=== PATIENT | male | born 1935 | race Caucasian/White ===

== ENCOUNTER 2018-02-01 23:27 | Inpatient (IN) | payer MEDICARE, BC ==
[2018-02-01 23:52] LABS: Actual Bicarbonate (HCO3a) 21.4 mEq/L (22-28); Base Excess (BEa) 6.7 mEq/L (-2.0 to +3.0); CO2 Tension 51.9 mmHg (35.0-45.0); Hemoglobin (Hb) 16.8 g/dL (14.0-18.0); O2 Tension (PaO2) 116.7 mmHg (> 60.0); pH, Arterial 7.23 (7.35-7.45)
[2018-02-01 23:53] LABS: Analyzer IN Cardio ER; Calcium, Ionized 1.16 mmol/L (1.12-1.30); Carboxyhemoglobin (COHb) 0.4 gm% (0.0-3.0); Potassium - ABG Lab 4.24 mmol/L (3.70-5.30); Puncture Site LRA
[2018-02-01 23:54] LABS: ALV-art Gradient 522.425 (0-20)
[2018-02-02 00:46] LABS: Troponin I 0.314 ng/mL (< 0.028)
[2018-02-02] MEDS ORDERED: Ondansetron HCl/PF 4 MG/2 ML Vial IVP PRN (01:09)
[2018-02-02] MEDS ORDERED: Acetaminophen 325 MG TAB PO PRN (01:09)
[2018-02-02 03:27] LABS: #Lymphocytes 0.5 thou/uL (1.20-3.40); #Monocytes 0.2 thou/uL (0.11-0.59); #Neutrophils 6.6 thou/uL (1.40-6.50); %Eosinophils 0.2 % (0.0-10.0); %Lymphocytes 6.7 % (21.0-51.0); %Monocytes 3.1 % (0.0-10.0); Hemoglobin 16.4 g/dL (14.0-18.0); Mean Corpuscular HGB CONC 33.7 g/dL (32.0-36.0); Mean Corpuscular Hemoglobin 32.4 pg (27.0-31.0); Mean Corpuscular Volume 96.1 fL (78.0-98.0); Mean Platelet Volume 8.4 fL (7.4-10.4); Platelet Count 127 thou/uL (130-400); RBC Distribution Width 12.9 % (11.5-14.5); Red Blood Cell (RBC) Count 5.07 mill/uL (4.70-6.10); White Blood Cell (WBC) Count 7.4 thou/uL (4.8-10.8)
[2018-02-02 03:40] LABS: Anion Gap 15 mmol/L (10-20); BUN (Urea Nitrogen) 30 mg/dL (8.4-25.7); Calc. Creatinine Clearance 0 mL/min (70-130); Calcium 9.1 mg/dL (7.8-10.44); Carbon Dioxide 26 mmol/L (23-31); Chloride 106 mmol/L (98-107); Estimated GFR-MDRD 61; Glucose 103 mg/dL (83-110); Potassium 3.6 mmol/L (3.5-5.1); Sodium 143 mmol/L (136-145)
[2018-02-02] MEDS ORDERED: Enoxaparin Sodium 80 MG/0.8 ML SYRINGE SC SCH (05:15)
[2018-02-02] MEDS: Nitroglycerin 2% Ointment 1 INCH/1 GM Packet TOP SCH ×3 (05:52→21:07)
--- NOTE | 2018-02-02 06:20 | HP ---
DATE OF ADMISSION: 02/01/2018 PRIMARY CARE PHYSICIAN: Dr. Duffy. CODE STATUS: FULL CODE. TIME OF EVALUATION: 12:30. CHIEF COMPLAINT: Gradually worsening shortness of breath. HISTORY OF PRESENT ILLNESS: This is an 82-year-old male patient with past medical history of congestive heart failure, hypertension, coronary artery disease, GERD, BPH, came to the hospital after having severe gradually worsening shortness of breath that started around 5-6 p.m. No clear triggers, no alleviating factors. The patient has had a regular day today including going to the gym in the morning, doing some exercises. The symptoms got gradually rapidly worse, patient was found to be in acute respiratory failure and was placed on BiPAP and showed improvement and transferred here to our hospital. As now, it looks like patient had not been taking Lasix for the past week due to change in medications. REVIEW OF SYSTEMS: Constitutional: No fever or chills or generalized weakness. Respiratory: Patient has cough, no sputum production, shortness of breath. Cardiovascular: No chest pain, palpitation. Gastrointestinal: No nausea, vomiting, diarrhea, or abdominal pain. HOSE SEAMER: No dizziness, headache, or feeling lightheaded. Genitourinary: No burning on urination. Extremities: Bilateral leg swelling. All other systems were reviewed and negative except for the findings mentioned above. PAST MEDICAL HISTORY: As mentioned in the HPI. PAST SURGICAL HISTORY: Cardiac catheterization in 12/2003. PSYCHIATRIC HISTORY: No psych history. SOCIAL HISTORY: No alcohol use, no drug use. No smoking history. FAMILY HISTORY: Reviewed and noncontributory for current presentation. DRUG ALLERGIES: No known drug allergies. REPORTED MEDICATIONS: Finasteride, potassium chloride, Lasix. PHYSICAL EXAMINATION: VITAL SIGNS: On presentation, heart rate 118, respiratory rate was 16, oxygen saturation 93 on room air, blood pressure 141/90. GENERAL: The patient was maintained on bedside. Patient is alert, oriented, in distress on BiPAP. HEENT: Normal conjunctivae. Moist oral mucosa. Anicteric. NECK: Bilateral JVD. RESPIRATORY: Bilateral air entry reduced. Patient has bilateral rales, scattered wheezing. Symmetric expansion. CARDIOVASCULAR: Patient is tachycardic, regular rate. No murmurs, no gallop. Bilateral leg edema. ABDOMEN: Soft, normal bowel sounds. MUSCULOSKELETAL: Baseline range of motion and strength. No tenderness. SKIN: Warm and intact. No pallor, no rash, no redness. Peripheral pulses are present. Capillary refill seems to be intact. NEUROLOGIC: Baseline sensory. No evidence of any new focal weakness. Baseline speech. Cranial nerves seem to be intact. PSYCH: Patient is in good mood. No anxiety, oriented, optimal judgment. IMAGING: EKG was reviewed. The patient has LBBB with ventricular rate 101. AL 168, QRS 172, QT corrected 557. Chest x-ray was reviewed. The patient has cardiomegaly with congestive heart failure, interstitial edema. LABORATORY DATA: Reviewed. The patient has white count 7.4, hemoglobin 16, hematocrit 48, MCV 96, platelet count 137. ABG was done showed pH of 7.23 with pCO2 of 51, pO2 of 116 that was on BiPAP oxygen of 100. Chemistry: Sodium 143, potassium 3.6, chloride 106, carbon dioxide 26, anion gap 15, BUN 30 , creatinine 1.15, GFR 61, glucose 103, calcium 9.1, magnesium 2.5, and troponin 0.3. ASSESSMENT AND PLAN: The patient will be placed in the hospital with following medical problems: 1. Acute congestive heart failure exacerbation. Patient has acute respiratory failure with hypoxia, needing BiPAP with saturation of 20, increased level of breathing, bilateral rales. Patient receiving diuresis, reconcile home medications. Dr. Escobar has been called for ER, we will follow recommendations. 2. Non-ST elevation myocardial infarction likely non-ST elevation myocardial infarction type 2. His elevation in troponin during exacerbation, there is also left bundle branch block seen on the EKG that was new when compared with previous EKGs in records, Dr. Escobar has been called, we will follow recommendations. 3. History of gastroesophageal reflux disease. Reconcile home medications. 4. Controlled hypertension, reconciled home medications. Adjust treatment as needed. 5. Deep venous thrombosis prophylaxis. [facility]
[2018-02-02] MEDS: Furosemide 40 MG/4 ML VIAL SLOW IVP SCH ×2 (06:29→14:21)
--- NOTE | 2018-02-02 08:54 | PDOC.PN ---
- Subjective Encounter Start Date: 02/02/18 Encounter Start Time: 08:52 Mr. Lewis was seen today in follow-up of CHF exacerbation. He is currently on BiPAP. He says he is breathing better, and wants to remove the face mask. He denies having any chest pain. - Objective Resuscitation Status: Resuscitation Status FULL:Full Resuscitation MAR Reviewed: Yes Vital Signs & Weight: Vital Signs (12 hours) Temp Pulse Resp BP Pulse Ox 02/02/18 08:00 97 02/02/18 07:36 98.6 F 85 29 H 115/71 97 02/02/18 03:10 96 02/02/18 02:52 97.9 F 89 29 H 114/76 97 Weight Weight 155 lb 3 oz I&O: 02/01/18 02/02/18 02/03/18 06:59 06:59 06:59 Intake Total 14 Output Total 750 Balance -736 Result Diagrams: 02/02/18 03:17 02/02/18 03:17 Phys Exam - Physical Examination HEENT: PERRLA Respiratory: no wheezing + rales at both bases, and some rhonchi good breath sounds Cardiovascular: RRR, no significant murmur, no rub Gastrointestinal: soft, non-tender, no distention, positive bowel sounds Musculoskeletal: no edema, pulses present Dx/Plan (1) Acute on chronic systolic (congestive) heart failure Code(s): I50.23 - ACUTE ON CHRONIC SYSTOLIC (CONGESTIVE) HEART FAILURE Status : Acute (2) Acute respiratory failure with hypoxia Code(s): J96.01 - ACUTE RESPIRATORY FAILURE WITH HYPOXIA Status: Acute (3) NSTEMI (non-ST elevated myocardial infarction) Code(s): I21.4 - NON-ST ELEVATION (NSTEMI) MYOCARDIAL INFARCTION Status: Acute (4) Hypertension Code(s): I10 - ESSENTIAL (PRIMARY) HYPERTENSION Status: Acute - Plan * Acute hypoxic respiratory failure due to CHF exacerbation- continue BiPAP. * CHF exacerbation- not yet compensated- continue IV Lasix, and BiPAP * Continue Losartan * Await further recommendations from Dr. Grewal * NSTEMI- as above continue Carvediolol, and aspirin, and nitropaste * HTN- blood pressure is controlled *
[2018-02-02] MEDS ORDERED: Prevnar 13-Val Conj/PF 0.5 ML SYRINGE IM ONE (09:00)
[2018-02-02] MEDS ORDERED: Enoxaparin Sodium 40 MG/0.4 ML SYRINGE SC SCH (09:00)
[2018-02-02] MEDS: Losartan 25 MG TAB PO SCH (09:29)
[2018-02-02] MEDS: Aspirin 325 MG TAB PO SCH (09:29)
[2018-02-02] MEDS: Carvedilol 3.125 MG TAB PO SCH ×3 (09:29→20:33)
[2018-02-02] MEDS: Finasteride 5 MG TAB PO SCH (09:30)
[2018-02-02] MEDS: Atorvastatin Calcium 10 MG TAB PO SCH (09:30)
--- NOTE | 2018-02-02 10:13 | CON ---
DATE OF CONSULTATION: 02/02/2018 The following encompassed 30 minutes time, of that time, greater than 50% of the time was spent with the patient and/or on the patient's unit in the IM. HISTORY OF PRESENT ILLNESS: The patient is a pleasant 82-year-old male who came to the hospital in [facility] last night with increasing shortness of breath of several days' duration. His state s that he had cut his diuretic dose in half against doctor recommendations. The patient has been raeann chhaya on BiPAP for acute on chronic respiratory failure. He is now on IV Lasix. PAST MEDICAL HISTORY: 1. Congestive heart failure. 2. Hypertension. 3. Coronary artery disease. 4. Benign prostatic hypertrophy. 5. Gastroesophageal reflux. PAST SURGICAL HISTORY: Cardiac catheterization. PSYCHIATRIC HISTORY: None. SOCIAL HISTORY: Nonsmoker, does not consume alcohol, does not use illicit drugs. FAMILY MEDICAL HISTORY: Unremarkable. ALLERGIES: None. MEDICATIONS PRIOR TO ADMISSION: Carvedilol 3.125 mg b.i.d., aspirin 81 mg daily, furosemide 20 mg da rosita, finasteride 5 mg daily, losartan 50 mg daily, atorvastatin 10 mg daily. REVIEW OF SYSTEMS: Twelve point review of systems is otherwise negative. PHYSICAL EXAMINATION: VITAL SIGNS: Temperature 98.6, pulse 85, respiration is 29, saturation 97% on BiPAP, blood pressure 115/71. HEENT: Unremarkable. NECK: No adenopathy. He has 6 cm JVD. LUNGS: He has inspiratory crackles in both bases. CARDIAC: S1, S2 regular without audible murmur. ABDOMEN: Soft, nontender, nondistended. EXTREMITIES: No clubbing, cyanosis, or edema. NEUROLOGIC: Grossly intact throughout. LABORATORY DATA: Troponins 2.0. Sodium 143, potassium 3.6, chloride 106, CO2 26, BUN 30, creatinine 1.2, glucose 103. PH 7.23, pCO2 51, pO2 of 116, that was on BiPAP, white blood cell count 7.4, wendy tocrit 48.7, platelet count 127. BNP level was 1370. Chest x-ray shows cardiomegaly with diffuse bilateral infiltrates. ASSESSMENT: 1. Acute systolic congestive heart failure. 2. Acute hypoxic respiratory failure requiring mechanical ventilation with BiPAP. 3. Renal insufficiency. 4. Slightly elevated troponin. PLAN: 1. This patient needs to continue BiPAP until he has diuresed enough to tolerate a nasal cannula. 2. Continue diuresis. 3. Further input per Cardiology. 4. We will follow with you.
[2018-02-02] MEDS: Enoxaparin Sodium 80 MG/0.8 ML SYRINGE SC SCH (20:30)
[2018-02-03] MEDS: Furosemide 40 MG/4 ML VIAL SLOW IVP SCH ×2 (05:43→14:44)
[2018-02-03] MEDS: Nitroglycerin 2% Ointment 1 INCH/1 GM Packet TOP SCH ×3 (05:43→21:53)
[2018-02-03] MEDS: Carvedilol 3.125 MG TAB PO SCH ×2 (08:26→16:05)
[2018-02-03] MEDS: Losartan 25 MG TAB PO SCH ×2 (08:26→20:33)
[2018-02-03] MEDS: Aspirin 325 MG TAB PO SCH (08:26)
[2018-02-03] MEDS: Enoxaparin Sodium 80 MG/0.8 ML SYRINGE SC SCH (08:26)
[2018-02-03] MEDS: Atorvastatin Calcium 10 MG TAB PO SCH (08:26)
[2018-02-03] MEDS: Finasteride 5 MG TAB PO SCH (08:26)
--- NOTE | 2018-02-03 09:09 | PRG ---
DATE OF SERVICE: 02/03/2018 The patient is feeling better today. He is off the BiPAP. PHYSICAL EXAMINATION: VITAL SIGNS: Temperature 98.6, pulse 78, respirations 20, O2 sat 90% on 3.5 liters, blood pressure 1 10/57. HEENT: Unremarkable. NECK: No JVD. LUNGS: He has inspiratory crackles both bases. CARDIAC: S1 and S2 regular. ABDOMEN: Soft. EXTREMITIES: No edema. LABORATORY DATA: No new labs were obtained today. ASSESSMENT: 1. Congestive heart failure. 2. Status post acute hypoxic respiratory failure. PLAN: This patient can be transferred out to the telemetry floor. He is out of the glez in terms o f his pulmonary edema. He needs to continue diuresis. He needs his labs checked tomorrow morning.
--- NOTE | 2018-02-03 11:14 | PDOC.PN ---
- Subjective Encounter Start Date: 02/03/18 Encounter Start Time: 11:12 Mr. Lewis was seen today in follow-up of acute respiratory failure. He is breathing better, and is now off BiPAP. He is still requiring some supplemental oxygen. - Objective Resuscitation Status: Resuscitation Status FULL:Full Resuscitation MAR Reviewed: Yes Vital Signs & Weight: Vital Signs (12 hours) Temp Pulse Resp BP Pulse Ox 02/03/18 11:02 98.1 F 67 18 109/71 100 02/03/18 08:36 98 02/03/18 08:00 99 02/03/18 07:12 98.6 F 78 20 110/57 L 99 02/03/18 04:00 98.9 F 56 L 20 95/56 L 99 02/03/18 00:00 98.4 F 69 20 93/64 100 Weight Weight 157 lb I&O: 02/02/18 02/03/18 02/04/18 06:59 06:59 06:59 Intake Total 14 1274 Output Total 750 1300 Balance -736 -26 Result Diagrams: 02/02/18 03:17 02/02/18 03:17 Phys Exam - Physical Examination HEENT: PERRLA Respiratory: no wheezing, no rhonchi + rales bilaterally, breath sounds are equal Cardiovascular: RRR, no significant murmur, no rub no gallop Gastrointestinal: soft, non-tender, no distention, positive bowel sounds Musculoskeletal: edema present Dx/Plan (1) Acute on chronic systolic (congestive) heart failure Code(s): I50.23 - ACUTE ON CHRONIC SYSTOLIC (CONGESTIVE) HEART FAILURE Status : Acute (2) Acute respiratory failure with hypoxia Code(s): J96.01 - ACUTE RESPIRATORY FAILURE WITH HYPOXIA Status: Acute (3) NSTEMI (non-ST elevated myocardial infarction) Code(s): I21.4 - NON-ST ELEVATION (NSTEMI) MYOCARDIAL INFARCTION Status: Acute (4) Hypertension Code(s): I10 - ESSENTIAL (PRIMARY) HYPERTENSION Status: Acute - Plan * Acute systolic heart failure- improved- continue to diurese with IV Lasix * Continue Losartan and Carvediolol * NSTEMI- He has been evaluated by Cardiology, and an Echo has been ordered, continue aspirin and statin * HTN- blood pressure is a bit low, but so far he is not symptomatic from this- will monitor
[2018-02-03] MEDS ORDERED: Diltiazem 125 MG in Sodium Chloride 0.9% 100 ML IVPB SCH (13:00)
--- NOTE | 2018-02-03 16:04 | CON ---
DATE OF CONSULTATION: 02/03/2018 HISTORY OF PRESENT ILLNESS: The patient is an 82-year-old gentleman who presented with increasing dyspnea. The patient has a history of a cardiomyopathy. In 2003. The patient underwent a cardiac catheterization. He was found to have mild coronary artery disease with a 30% LAD lesion. His ejection fraction was 35%-40%. The patient has subsequently been on medical therapy. The patient has done well on medical therapy. He at the time was tried on Entresto, but this medication was subsequently discontinued due to the cost. The patient was in his usual state of health when he presented with acute onset of increasing dyspnea. The patient denied having any chest discomfort or palpitations. He reported having severe coughing. He denied having any fever. PAST MEDICAL HISTORY: 1. Coronary artery disease. 2. Cardiomyopathy. 3. Hypertension. 4. He had a history of gastric ulcer. PAST SURGICAL HISTORY: None. SOCIAL HISTORY: Nonsmoker. No excessive use of alcohol. MEDICATIONS: Carvedilol 3.125 b.i.d., aspirin 81 daily, Lasix 20 daily, finasteride 5 daily, losartan 50 daily, and Lipitor 10 at bedtime. ALLERGIES: No known drug allergies. FAMILY HISTORY: Positive family history of coronary artery disease. REVIEW OF SYSTEMS: Ten-point system otherwise unremarkable. No history of easy bruising, bright blood per rectum. Ten-point system otherwise unremarkable. PHYSICAL EXAMINATION: GENERAL: This is a well-developed gentleman in no acute distress. VITAL SIGNS: Blood pressure 109/71. NECK: Showed no jugular venous distention. LUNGS: Have crackles throughout both lung preston. HEART: Regular rate and rhythm with a normal S1, S2, no murmurs. ABDOMEN: Distended. EXTREMITIES: Showed trace edema. SKIN: Warm and dry. NEUROLOGIC: Nonfocal. VASCULAR: Radial pulses 2+. LABORATORY DATA: Sodium 143, potassium 3.6, chloride 106, bicarbonate 26, BUN 30, creatinine 1.15. Troponin was 2.0. His white blood cell count 7.4, hemoglobin 16.4, hematocrit 48.7, platelets 127. EKG revealed normal sinus rhythm with a left bundle branch block. IMPRESSION: 1. Congestive heart failure. 2. Non-Q-wave myocardial infarction. 3. Nonischemic cardiomyopathy. 4. Hypertension. 5. History of mild coronary artery disease. 6. History of gastric ulcer. This gentleman presents with congestive heart failure. He had a mild elevation in troponin, which may be secondary to demand ischemia or small non-Q-wave myocardial infarction. From a cardiac standpoint, I would increase the dose of his losartan. The patient will be treated with IV Lasix. We will add spironolactone. We will check an echocardiogram. Further recommendations will follow. [facility]TDD
[2018-02-04] MEDS: Furosemide 40 MG/4 ML VIAL SLOW IVP SCH (06:01)
[2018-02-04] MEDS: Nitroglycerin 2% Ointment 1 INCH/1 GM Packet TOP SCH (06:01)
[2018-02-04 06:41] LABS: Anion Gap 12 mmol/L (10-20); BUN (Urea Nitrogen) 35 mg/dL (8.4-25.7); Calc. Creatinine Clearance 60 mL/min (70-130); Carbon Dioxide 30 mmol/L (23-31); Chloride 104 mmol/L (98-107); Estimated GFR-MDRD 75; Glucose 102 mg/dL (83-110); Sodium 143 mmol/L (136-145)
[2018-02-04] MEDS ORDERED: Spironolactone 25 MG TAB PO SCH (08:25)
[2018-02-04] MEDS ORDERED: Furosemide 40 MG/4 ML VIAL SLOW IVP SCH (09:00)
[2018-02-04] MEDS: Atorvastatin Calcium 10 MG TAB PO SCH (09:16)
[2018-02-04] MEDS: Spironolactone 25 MG TAB PO SCH (09:16)
[2018-02-04] MEDS: Enoxaparin Sodium 40 MG/0.4 ML SYRINGE SC SCH (09:16)
[2018-02-04] MEDS: Aspirin 81 mg Enteric Coated Tablet PO SCH (09:16)
[2018-02-04] MEDS: Carvedilol 3.125 MG TAB PO SCH ×2 (09:16→18:23)
[2018-02-04] MEDS: Finasteride 5 MG TAB PO SCH (09:16)
[2018-02-04] MEDS: Losartan 25 MG TAB PO SCH ×2 (09:16→20:01)
--- NOTE | 2018-02-04 09:25 | PDOC.PN ---
- Subjective Encounter Start Date: 02/04/18 Encounter Start Time: 08:45 Subjective: no chest pain or palp, mild sob -: is ambulating in hallway -: has not bad BM since admission - Objective Resuscitation Status: Resuscitation Status FULL:Full Resuscitation MAR Reviewed: Yes Vital Signs & Weight: Vital Signs (12 hours) Temp Pulse Resp BP Pulse Ox 02/04/18 08:00 97.7 F 52 L 16 118/63 92 L 02/04/18 03:56 98.2 F 64 20 104/68 93 L 02/04/18 02:11 92 L 02/04/18 00:00 98.0 F 69 16 100/58 L 92 L Weight Weight 149 lb 8 oz I&O: 02/03/18 02/04/18 02/05/18 06:59 06:59 06:59 Intake Total 1274 300 Output Total 1300 650 450 Balance -26 -350 -450 Result Diagrams: 02/02/18 03:17 02/04/18 05:27 Phys Exam - Physical Examination HEENT: PERRLA, moist MMs Neck: no JVD, supple Respiratory: no wheezing rales+ Cardiovascular: RRR, no significant murmur Gastrointestinal: soft, non-tender, positive bowel sounds Musculoskeletal: no edema, pulses present Neurological: non-focal, moves all 4 limbs Psychiatric: normal affect, A&O x 3 Dx/Plan (1) Acute on chronic systolic (congestive) heart failure Code(s): I50.23 - ACUTE ON CHRONIC SYSTOLIC (CONGESTIVE) HEART FAILURE Status : Acute Comment: ef of 15%, ACC stage B (2) Demand ischemia of myocardium Code(s): I24.8 - OTHER FORMS OF ACUTE ISCHEMIC HEART DISEASE Status: Acute (3) Acute respiratory failure with hypoxia Code(s): J96.01 - ACUTE RESPIRATORY FAILURE WITH HYPOXIA Status: Resolved Comment: sec to chf exac (4) Hypertension Code(s): I10 - ESSENTIAL (PRIMARY) HYPERTENSION Status: Chronic Qualifiers: Hypertension type: essential hypertension Qualified Code(s): I10 - Essential (primary) hypertension - Plan needs 2 more doses of iv lasix -: ?life vest -: continue coreg, cozaar, spironolactone -: asp and lipitor -: to amb as tolerated in hallway, dc plan per cardio advice * . Review of Systems - Medications/Allergies Allergies/Adverse Reactions: Allergies Allergy/AdvReac Type Severity Reaction Status Date / Time No Known Allergies Allergy Verified 02/02/18 03:15 Medications: Current Medications Acetaminophen (Tylenol) 650 mg PO Q4H PRN PRN Reason: Headache/Fever or Pain Aspirin (Ecotrin) 81 mg PO DAILY [facility] Last Admin: 02/04/18 09:16 Dose: 81 mg Atorvastatin Calcium (Lipitor) 10 mg PO DAILY [facility] Last Admin: 02/04/18 09:16 Dose: 10 mg Carvedilol (Coreg) 3.125 mg PO BID-[facility] Last Admin: 02/04/18 09:16 Dose: 3.125 mg Enoxaparin Sodium (Lovenox) 40 mg SC 0900 [facility] Last Admin: 02/04/18 09:16 Dose: 40 mg Finasteride (Proscar) 5 mg PO DAILY [facility] Last Admin: 02/04/18 09:16 Dose: 5 mg Furosemide (Lasix) 40 mg SLOW IVP DAILY [facility] Last Admin: 02/04/18 09:17 Dose: 40 mg Losartan Potassium (Cozaar) 50 mg PO BID [facility] Last Admin: 02/04/18 09:16 Dose: 50 mg Ondansetron HCl (Zofran) 4 mg IVP Q6H PRN PRN Reason: Nausea/Vomiting Sodium Chloride (Flush - Normal Saline) 10 ml IVF Q12HR [facility] Last Admin: 02/03/18 20:34 Dose: 10 ml Sodium Chloride (Flush - Normal Saline) 10 ml IVF PRN PRN PRN Reason: Saline Flush Spironolactone (Aldactone) 25 mg PO QAM-[facility] Last Admin: 02/04/18 09:16 Dose: 25 mg
[2018-02-04] MEDS ORDERED: Bisacodyl 10 MG SUPP PR PRN (09:28)
--- NOTE | 2018-02-04 15:41 | PRG ---
DATE OF SERVICE: 02/04/2018 SERVICE: Pulmonary Medicine. INTERVAL HISTORY: The patient is doing fine from a respiratory standpoint. He has been weaned off o xygen altogether. He was able to ambulate with physical therapy today. He had a little bit of short ness of breath with hypoxemia associated with that, but recovered very quickly with minimal oxygen. He is back on room air. He does not have any chest discomfort. He is coughing a little bit, but no longer bringing up the frothy bloody sputum. PHYSICAL EXAMINATION: VITAL SIGNS: Afebrile, pulse 52, blood pressure 118/63, respirations 16, saturation 92% on room air. GENERAL: The patient is awake and alert, in no apparent distress. LUNGS: Decent air entry. There are extensive crackles throughout bilateral lung preston. No prolong ed expiratory phase or wheezing is appreciated. HEART: Normal rate, regular. ABDOMEN: Soft, nontender, nondistended. Bowel sounds are positive. MUSCULOSKELETAL: No cyanosis or clubbing. There is no pitting in the bilateral lower extremities. NEUROLOGIC: Grossly nonfocal. LABORATORY DATA: Potassium 3.0. Basic metabolic profile is otherwise unremarkable. IMAGING: Echocardiogram demonstrates a 10% ejection fraction with significant valvular abnormalities . ASSESSMENT: 1. Acute hypoxic respiratory failure, resolved. 2. Acute on chronic systolic and valvular heart failure. DISCUSSION AND PLAN: We will continue to diurese the patient. We can drop our interval to once tyler y. Continue efforts at mobilizing the patient through time. Pulmonary Critical Care will continue t o follow along intermittently while the patient remains in the hospital.
[2018-02-04] MEDS: Potassium Chloride 20 MEQ TAB PO SCH ×3 (17:31→23:21)
[2018-02-04] MEDS: Docusate 100 MG CAP PO SCH (20:01)
[2018-02-05] MEDS ORDERED: Metolazone 5 MG TAB PO SCH (09:00)
[2018-02-05] MEDS ORDERED: Furosemide 40 MG/4 ML VIAL SLOW IVP SCH ×2 (09:00→14:00)
[2018-02-05] MEDS: Spironolactone 25 MG TAB PO SCH (10:10)
[2018-02-05] MEDS: Aspirin 81 mg Enteric Coated Tablet PO SCH (10:10)
[2018-02-05] MEDS: Carvedilol 3.125 MG TAB PO SCH ×2 (10:10→17:11)
[2018-02-05] MEDS: Atorvastatin Calcium 10 MG TAB PO SCH (10:11)
[2018-02-05] MEDS: Finasteride 5 MG TAB PO SCH (10:11)
[2018-02-05] MEDS: Losartan 25 MG TAB PO SCH ×2 (10:12→20:38)
[2018-02-05] MEDS: Docusate 100 MG CAP PO SCH ×2 (10:13→20:38)
[2018-02-05] MEDS: Polyethylene Glycol 3350 17 GM Packet PO SCH (10:13)
--- NOTE | 2018-02-05 10:23 | PDOC.PN ---
- Subjective Encounter Start Date: 02/05/18 Encounter Start Time: 08:30 Subjective: no chest pain -: spo2 drops to 85% on ambulation -: he is feeling better - Objective Resuscitation Status: Resuscitation Status FULL:Full Resuscitation MAR Reviewed: Yes Vital Signs & Weight: Vital Signs (12 hours) Temp Pulse Resp BP Pulse Ox 02/05/18 07:30 97.7 F 66 18 118/63 95 02/05/18 04:05 98.0 F 75 12 112/68 95 02/05/18 02:02 96 02/05/18 00:00 98.2 F 86 15 110/72 96 Weight Weight 149 lb 8 oz I&O: 02/04/18 02/05/18 02/06/18 06:59 06:59 06:59 Intake Total 300 480 Output Total 650 1425 Balance -350 -945 Result Diagrams: 02/02/18 03:17 02/04/18 05:27 Phys Exam - Physical Examination HEENT: PERRLA, moist MMs Neck: no JVD, supple Respiratory: no wheezing rales+ Cardiovascular: RRR, no significant murmur Gastrointestinal: soft, non-tender, positive bowel sounds Musculoskeletal: no edema, pulses present Neurological: non-focal, moves all 4 limbs Psychiatric: normal affect, A&O x 3 Dx/Plan (1) Acute on chronic systolic (congestive) heart failure Code(s): I50.23 - ACUTE ON CHRONIC SYSTOLIC (CONGESTIVE) HEART FAILURE Status : Acute Comment: ef of 15%, ACC stage B (2) Demand ischemia of myocardium Code(s): I24.8 - OTHER FORMS OF ACUTE ISCHEMIC HEART DISEASE Status: Acute (3) Acute respiratory failure with hypoxia Code(s): J96.01 - ACUTE RESPIRATORY FAILURE WITH HYPOXIA Status: Resolved Comment: sec to chf exac (4) Hypertension Code(s): I10 - ESSENTIAL (PRIMARY) HYPERTENSION Status: Chronic Qualifiers: Hypertension type: essential hypertension Qualified Code(s): I10 - Essential (primary) hypertension - Plan continue gentle diuresis -: for possible cath per patient? in am -: is on coreg, cozaar bid, spironolactone, asp and lipitor -: to ambulate as tolerated -: watch for renal function with progressive increase in bun and hco3 * . Review of Systems - Medications/Allergies Allergies/Adverse Reactions: Allergies Allergy/AdvReac Type Severity Reaction Status Date / Time No Known Allergies Allergy Verified 02/02/18 03:15 Medications: Current Medications Acetaminophen (Tylenol) 650 mg PO Q4H PRN PRN Reason: Headache/Fever or Pain Aspirin (Ecotrin) 81 mg PO DAILY [facility] Last Admin: 02/05/18 10:10 Dose: 81 mg Atorvastatin Calcium (Lipitor) 10 mg PO DAILY [facility] Last Admin: 02/05/18 10:11 Dose: 10 mg Bisacodyl (Dulcolax) 10 mg AK DAILYPRN PRN PRN Reason: Constipation Carvedilol (Coreg) 3.125 mg PO BID-[facility] Last Admin: 02/05/18 10:10 Dose: 3.125 mg Docusate Sodium (Colace) 100 mg PO BID [facility] Last Admin: 02/05/18 10:13 Dose: Not Given Enoxaparin Sodium (Lovenox) 40 mg SC 0900 [facility] Last Admin: 02/04/18 09:16 Dose: 40 mg Finasteride (Proscar) 5 mg PO DAILY [facility] Last Admin: 02/05/18 10:11 Dose: 5 mg Furosemide (Lasix) 40 mg SLOW IVP 0600,1400 [facility] Furosemide (Lasix) 40 mg SLOW IVP 0900 [facility] Stop: 02/05/18 11:00 Last Admin: 02/05/18 10:12 Dose: 40 mg Losartan Potassium (Cozaar) 50 mg PO BID [facility] Last Admin: 02/05/18 10:12 Dose: 50 mg Metolazone (Zaroxolyn) 5 mg PO 0900 [facility] Stop: 02/05/18 11:00 Last Admin: 02/05/18 10:12 Dose: 5 mg Ondansetron HCl (Zofran) 4 mg IVP Q6H PRN PRN Reason: Nausea/Vomiting Polyethylene Glycol (Miralax) 17 gm PO DAILY [facility] Last Admin: 02/05/18 10:13 Dose: Not Given Sodium Chloride (Flush - Normal Saline) 10 ml IVF Q12HR [facility] Last Admin: 02/05/18 10:14 Dose: 10 ml Sodium Chloride (Flush - Normal Saline) 10 ml IVF PRN PRN PRN Reason: Saline Flush Spironolactone (Aldactone) 25 mg PO QAM-[facility] Last Admin: 02/05/18 10:10 Dose: 25 mg
[2018-02-05] MEDS: Enoxaparin Sodium 40 MG/0.4 ML SYRINGE SC SCH (11:50)
--- NOTE | 2018-02-05 17:32 | PRG ---
DATE OF SERVICE: 02/05/2018 SERVICE: Pulmonary Medicine. INTERVAL HISTORY: The patient is doing fine from a respiratory standpoint. He is breathing comforta morgan. There has been no interval change to his condition. He is forward to getting out of here. He would like to leave today. That being said, Cardiology is waiting for him to be seen by his primary job recruiter. PHYSICAL EXAMINATION: VITAL SIGNS: Afebrile, pulse 70, blood pressure 102/61, respirations 18, saturation 95% on 2 liters nasal cannula. GENERAL: The patient is awake, alert, in no apparent distress. LUNGS: Decent air entry. There is no prolonged expiratory phase are present. There are crackles id entified. No wheezing or rhonchi appreciated. HEART: Normal rate, regular. ABDOMEN: Soft, nontender, nondistended. Bowel sounds are positive. MUSCULOSKELETAL: No cyanosis or clubbing. There is no pitting in the bilateral lower extremities. NEUROLOGIC: Grossly nonfocal. ASSESSMENT: 1. Acute hypoxic respiratory failure. 2. Acute on chronic systolic and valvular heart failure. DISCUSSION AND PLAN: Pulmonary Critical Care will continue to follow along. We are going to continu e our mobilization efforts and to diurese him through time. Repeat laboratories will be performed to [place] morning. Dr. Salgado will assume care in the morning.
[2018-02-06 06:38] LABS: #Eosinphils 0.2 thou/uL (0.0-0.7); #Lymphocytes 1.1 thou/uL (1.20-3.40); #Monocytes 0.7 thou/uL (0.11-0.59); #Neutrophils 5.2 thou/uL (1.40-6.50); %Basophils 0.4 % (0.0-1.0); %Eosinophils 2.9 % (0.0-10.0); %Lymphocytes 15.4 % (21.0-51.0); %Monocytes 9.3 % (0.0-10.0); Hemoglobin 15.7 g/dL (14.0-18.0); Mean Corpuscular HGB CONC 32.5 g/dL (32.0-36.0); Mean Corpuscular Hemoglobin 31.1 pg (27.0-31.0); Mean Corpuscular Volume 95.8 fL (78.0-98.0); Mean Platelet Volume 8.4 fL (7.4-10.4); Platelet Count 149 thou/uL (130-400); RBC Distribution Width 12.4 % (11.5-14.5); Red Blood Cell (RBC) Count 5.03 mill/uL (4.70-6.10); White Blood Cell (WBC) Count 7.2 thou/uL (4.8-10.8)
[2018-02-06 07:04] LABS: Anion Gap 9 mmol/L (10-20); BUN (Urea Nitrogen) 20 mg/dL (8.4-25.7); Calc. Creatinine Clearance 46 mL/min (70-130); Calcium 9.6 mg/dL (7.8-10.44); Carbon Dioxide 34 mmol/L (23-31); Chloride 101 mmol/L (98-107); Estimated GFR-MDRD 60; Glucose 113 mg/dL (83-110); Magnesium 2.3 mg/dL (1.6-2.6); Potassium 3.6 mmol/L (3.5-5.1); Sodium 140 mmol/L (136-145)
--- NOTE | 2018-02-06 08:32 | PRG ---
DATE OF SERVICE: 02/06/2018 The patient is doing well, has no complaints. PHYSICAL EXAMINATION: VITAL SIGNS: Temperature 98.3, pulse 82, respirations 18, O2 sat 90% on room air, 94% on 2 liters, b lood pressure 97/60. HEENT: Unremarkable. NECK: No JVD. LUNGS: A few crackles in both bases. CARDIAC: S1 and S2 regular. ABDOMEN: Soft. EXTREMITIES: No edema. LABORATORY DATA: White blood cell count 7.2, hematocrit 48.2, platelet count 149. Sodium 140, potas sium 3.6, chloride 101, CO2 34, BUN 20, creatinine 1.6, glucose 113. ASSESSMENT: 1. Acute hypoxic respiratory failure. 2. Acute on chronic systolic heart failure. PLAN: 1. Wean oxygen as tolerated. 2. Continue diuresis. 3. Await further input from Cardiology Service.
[2018-02-06] MEDS: Furosemide 40 MG TAB PO SCH (08:57)
[2018-02-06] MEDS: Carvedilol 3.125 MG TAB PO SCH ×2 (08:57→17:06)
[2018-02-06] MEDS: Spironolactone 25 MG TAB PO SCH (08:57)
[2018-02-06] MEDS: Docusate 100 MG CAP PO SCH ×2 (08:58→21:51)
[2018-02-06] MEDS: Atorvastatin Calcium 10 MG TAB PO SCH (08:58)
[2018-02-06] MEDS: Aspirin 81 mg Enteric Coated Tablet PO SCH (08:58)
[2018-02-06] MEDS: Finasteride 5 MG TAB PO SCH (08:59)
[2018-02-06] MEDS: Losartan 25 MG TAB PO SCH ×2 (08:59→21:51)
[2018-02-06] MEDS: Enoxaparin Sodium 40 MG/0.4 ML SYRINGE SC SCH (09:00)
[2018-02-06] MEDS: Polyethylene Glycol 3350 17 GM Packet PO SCH (09:00)
--- NOTE | 2018-02-06 10:20 | PQF ---
CLINICAL DOCUMENTATION IMPROVEMENT CLARIFICATION FORM: ICD-10 Updated PLEASE DO AN ADDENDUM TO THE PROGRESS NOTE WITH ANY DOCUMENTATION UPDATES OR ADDITIONS AND CARRY THROUGH TO DC SUMMARY. THANK YOU. DATE: 02/06 ATTN: DR. CLARIBEL ABAD Please exercise your independent, professional judgment in responding to the clarification form. Clinical indicators are provided on the bottom of this form for your review Please check appropriate box(s): [ ] NSTEMI [ ] AMI Type II [ ] DEMAND ISCHEMIA [ ] Other diagnosis [ ] Unable to determine CLINICAL INDICATORS - SIGNS / SYMPTOMS / LABS TROP: 0.314, 2.010 PHYSICIAN H&P DOCUMENTATION 02/02 (LETICIA): IMPRESSION/PLAN: 2) NSTEMI LIKELY NSTEMI TYPE; ...THERE IS ALSO LBBB SEEN ON THE EKG THAT WAS NEW WHEN COMPARED W/PREVIOUS EKG'S IN RECORDS ATTENDING PN 02/02 & (JOHN): DX/PLAN: 3) NSTEMI, ACUTE CARDIOLOGY CONSULT 02/03: IMPRESSION: 1) CHF; 2) NON-Q-WAVE IN; ...HE HAD A MILD ELEVATION IN TROPONIN, WHICH MAY BE 2/2 DEMAND ISCHEMIA OR SMALL NON-Q- WAVE IN ATTENDING PN 02/04 & (EMMA): DX/PLAN: 2) DEMAND ISCHEMIA, ACUTE ECHO 02/03: EF 10-15%, MILDLY DILATED L ATRIUM, L VENTRICULAR SIZE IS SEVERELY INCREASED RISKS: ACUTE ON CHRONIC SYSTOLIC CHF ACUTE HYPOXIC RESPIRATORY FAILURE HTN CAD TREATMENTS: BIPAP (02/01) IV DIURETIC (LASIX 02/01 - ) CARDIOLOGY CONSULT THANK YOU! Rebeka (This form is maintained as a part of the permanent medical record) 2014 [employer]. All Rights Reserved Rebeka Lanier, RN, BSN [email or web address] Office: [phone] [facility]
--- NOTE | 2018-02-06 13:35 | PDOC.PN ---
- Subjective Encounter Start Date: 02/06/18 Encounter Start Time: 13:32 -: old records requested/rev Pt seen adn examined, chart reviewed in its entirety. This is my first visit with this patient. follow up for NSTEMI, acute on chronic systolic CHF. To hoisting laborer in AM with Dr Schmidt, unsure, lasix increased by anusha. No F/C, no N/V/D/C, remains dyspneic, no CP All systems reviewed x as stated above - Objective Resuscitation Status: Resuscitation Status FULL:Full Resuscitation MAR Reviewed: Yes Vital Signs & Weight: Vital Signs (12 hours) Temp Pulse Resp BP Pulse Ox 02/06/18 11:20 97.6 F 64 18 114/69 96 02/06/18 07:30 98.3 F 73 18 97/60 93 L 02/06/18 06:44 91 L 02/06/18 03:54 98.1 F 73 14 105/57 L 92 L Weight Weight 146 lb 1.6 oz I&O: 02/05/18 02/06/18 02/07/18 06:59 06:59 06:59 Intake Total 480 904 Output Total 1425 1800 Balance -945 -896 Result Diagrams: 02/06/18 05:58 02/06/18 05:58 Radiology Reviewed by me: Yes EKG Reviewed by me: Yes Phys Exam - Physical Examination Constitutional: NAD HEENT: PERRLA, moist MMs, sclera anicteric, oral pharynx no lesions Neck: no nodes, supple, full ROM Respiratory: no wheezing, no rhonchi bibasialr rales present Cardiovascular: RRR, no significant murmur, no rub Gastrointestinal: soft, non-tender, no distention, positive bowel sounds Musculoskeletal: edema present Neurological: non-focal, normal sensation, moves all 4 limbs Lymphatic: no nodes Psychiatric: normal affect, A&O x 3 Skin: no rash, normal turgor, cap refill <2 seconds Dx/Plan (1) Acute on chronic systolic (congestive) heart failure Code(s): I50.23 - ACUTE ON CHRONIC SYSTOLIC (CONGESTIVE) HEART FAILURE Status : Acute Comment: ef of 15%, ACC stage B (2) NSTEMI (non-ST elevated myocardial infarction) Code(s): I21.4 - NON-ST ELEVATION (NSTEMI) MYOCARDIAL INFARCTION Status: Resolved Comment: present on admit, resolved (3) Hypertension Code(s): I10 - ESSENTIAL (PRIMARY) HYPERTENSION Status: Chronic Qualifiers: Hypertension type: essential hypertension Qualified Code(s): I10 - Essential (primary) hypertension (4) Acute respiratory failure with hypoxia Code(s): J96.01 - ACUTE RESPIRATORY FAILURE WITH HYPOXIA Status: Resolved Comment: sec to chf exac - Plan cont current plan of care, PT/OT, respiratory therapy * .
[2018-02-07 06:22] LABS: #Eosinphils 0.4 thou/uL (0.0-0.7); #Lymphocytes 1.2 thou/uL (1.20-3.40); #Monocytes 0.6 thou/uL (0.11-0.59); #Neutrophils 6.4 thou/uL (1.40-6.50); %Basophils 0.1 % (0.0-1.0); %Eosinophils 4.2 % (0.0-10.0); %Lymphocytes 13.8 % (21.0-51.0); %Monocytes 7.3 % (0.0-10.0); %Neutrophils 74.5 % (42.0-75.0); Hemoglobin 15.9 g/dL (14.0-18.0); Mean Corpuscular HGB CONC 33.9 g/dL (32.0-36.0); Mean Corpuscular Hemoglobin 32.2 pg (27.0-31.0); Mean Corpuscular Volume 94.9 fL (78.0-98.0); Mean Platelet Volume 8.6 fL (7.4-10.4); Platelet Count 151 thou/uL (130-400); RBC Distribution Width 12.3 % (11.5-14.5); Red Blood Cell (RBC) Count 4.95 mill/uL (4.70-6.10); White Blood Cell (WBC) Count 8.6 thou/uL (4.8-10.8)
[2018-02-07 06:49] LABS: Anion Gap 13 mmol/L (10-20); BUN (Urea Nitrogen) 40 mg/dL (8.4-25.7); Calc. Creatinine Clearance 43 mL/min (70-130); Calcium 9.5 mg/dL (7.8-10.44); Carbon Dioxide 28 mmol/L (23-31); Chloride 100 mmol/L (98-107); Estimated GFR-MDRD 57; Glucose 117 mg/dL (83-110); Magnesium 2.3 mg/dL (1.6-2.6); Potassium 3.4 mmol/L (3.5-5.1); Sodium 138 mmol/L (136-145)
[2018-02-07] MEDS: Enoxaparin Sodium 40 MG/0.4 ML SYRINGE SC SCH (07:28)
[2018-02-07] MEDS: Furosemide 40 MG TAB PO SCH (08:21)
--- NOTE | 2018-02-07 08:58 | PRG ---
DATE OF SERVICE: 02/07/2018 The patient is doing well. Pacemaker/defibrillator placement is planned. PHYSICAL EXAMINATION: VITAL SIGNS: His temperature is 98.4, pulse 60, respirations 14, O2 sat 94% on 1.5 liters, blood pre ssure 101/57. HEENT: Unremarkable. NECK: No JVD. LUNGS: No crackles. CARDIAC: S1 and S2 regular. ABDOMEN: Soft. EXTREMITIES: No edema. LABORATORY DATA: White blood cell count 8.6, hematocrit 46.9, platelet count 151. Sodium 138, potas sium 3.4, chloride 100, CO2 28, BUN 40, creatinine 1.2, glucose 117. ASSESSMENT: The patient has congestive heart failure which is currently stable after diuresis. He h as acute hypoxic respiratory failure, resolved. PLAN: Await further Cardiology procedures. No pulmonary issues at this time. We will sign off. Pl ease recall if further assistance needed.
[2018-02-07] MEDS: Carvedilol 3.125 MG TAB PO SCH ×2 (09:11→17:18)
[2018-02-07] MEDS: Spironolactone 25 MG TAB PO SCH (09:12)
[2018-02-07] MEDS: Aspirin 81 mg Enteric Coated Tablet PO SCH (09:13)
[2018-02-07] MEDS: Atorvastatin Calcium 10 MG TAB PO SCH (09:13)
[2018-02-07] MEDS: Docusate 100 MG CAP PO SCH ×2 (09:14→20:20)
[2018-02-07] MEDS: Losartan 25 MG TAB PO SCH ×2 (09:14→20:20)
[2018-02-07] MEDS: Finasteride 5 MG TAB PO SCH (09:14)
[2018-02-07] MEDS: Polyethylene Glycol 3350 17 GM Packet PO SCH (09:15)
--- NOTE | 2018-02-07 17:09 | PDOC.CTH ---
Cardiology Progress Note - Subjective EP progress note: patient seen and evaluated.No new cardiac concerns or complaints. No further shortness of breath or leg swelling. Denies heart racing, palpitations, chest pain/pressure, dizziness or passing out. He is hungry - Objective Vital Signs Temp Pulse Resp BP Pulse Ox 02/07/18 14:45 97.8 F 76 15 108/66 97 02/07/18 12:00 97.1 F L 64 18 106/72 94 L 02/07/18 08:01 98.4 F 66 14 101/57 L 94 L Weight 144 lb 02/06/18 02/07/18 02/08/18 06:59 06:59 06:59 Intake Total 904 915 Output Total 1800 1575 Balance -896 -660 - Physical Examination General/Neuro: alert & oriented x3, NAD Neck: carotid US brisk, no JVD present Lungs: CTA, unlabored respirations Heart: PMI normal, RRR Abdomen: NT/ND, soft - Telemetry Telemetry Rhythm: SR, LBBB - Labs Result Diagrams: 02/07/18 05:57 02/07/18 05:57 Troponin/CKMB Troponin I 2.010 ng/mL (< 0.028) H* 02/02/18 03:17 - Assessment/Plan 1. Acute on chronic congestive heart failure, now well compensated after diuresing 2. Non-ischemic cardiomyopathy 3. Worsening LVEF, was 35-40% in 2011 now 10-15% by echo this hospitalization 4. Newly found left bundle branch block 5. Elevated troponin, attributed to demand ischemia Bi-V ICD implant postponed until tomorrow AM at 0730. Ok to eat today. NPO after midnight. Patient aware of schedule change. no further questions from patient or family bedside.
[2018-02-08 05:50] LABS: #Eosinphils 0.3 thou/uL (0.0-0.7); #Lymphocytes 1.2 thou/uL (1.20-3.40); #Monocytes 0.6 thou/uL (0.11-0.59); #Neutrophils 6.7 thou/uL (1.40-6.50); %Basophils 0.5 % (0.0-1.0); %Eosinophils 3.5 % (0.0-10.0); %Lymphocytes 13.9 % (21.0-51.0); %Monocytes 6.5 % (0.0-10.0); %Neutrophils 75.6 % (42.0-75.0); Hemoglobin 15.3 g/dL (14.0-18.0); Mean Corpuscular HGB CONC 33.1 g/dL (32.0-36.0); Mean Corpuscular Hemoglobin 31.7 pg (27.0-31.0); Mean Corpuscular Volume 95.8 fL (78.0-98.0); Mean Platelet Volume 8.1 fL (7.4-10.4); Platelet Count 148 thou/uL (130-400); RBC Distribution Width 12.3 % (11.5-14.5); Red Blood Cell (RBC) Count 4.83 mill/uL (4.70-6.10); White Blood Cell (WBC) Count 8.9 thou/uL (4.8-10.8)
[2018-02-08 06:03] LABS: Anion Gap 12 mmol/L (10-20); BUN (Urea Nitrogen) 42 mg/dL (8.4-25.7); Calc. Creatinine Clearance 40 mL/min (70-130); Calcium 9.5 mg/dL (7.8-10.44); Carbon Dioxide 32 mmol/L (23-31); Chloride 99 mmol/L (98-107); Estimated GFR-MDRD 54; Glucose 104 mg/dL (83-110); Magnesium 2.4 mg/dL (1.6-2.6); Potassium 3.5 mmol/L (3.5-5.1); Sodium 139 mmol/L (136-145)
[2018-02-08] MEDS ORDERED: Lidocaine 1% (PF) 30 ML VIAL ONE ×2 (06:42→07:58)
[2018-02-08] MEDS ORDERED: CEFAZOLIN/Water 2 GM/20 ML SYRINGE ONE (06:46)
[2018-02-08] MEDS ORDERED: Fentanyl 100 MCG/2 ML VIAL ONE (07:32)
[2018-02-08] MEDS ORDERED: Midazolam HCl 2 mg/2 ml Vial ONE ×2 (07:32→08:51)
--- NOTE | 2018-02-08 10:01 | CON ---
ELECTROPHYSIOLOGY CONSULTATION DATE OF CONSULTATION: 02/06/2018 REFERRING PHYSICIAN: Jesus Lopez MD REASON FOR CONSULTATION: Worsening heart failure, severely reduced ejection fraction and left bundle branch block. HISTORY OF PRESENT ILLNESS: Mr. Mendoza is an 82-year-old gentleman who recently presented to the hospital with increasing dyspnea. He was initially diagnosed with cardiomyopathy in 2003, at which point, he underwent a left heart catheterization and was found to have mild nonobstructive coronary artery disease with a 30% LAD lesion. At that point, his ejection fraction was 35% to 40% and he has been medically managed since that time. Mr. Mendoza denies any preceding illness, fevers, or changes in medications, but had an acute onset of increasing dyspnea with a decline in activity tolerance. He denies any heart racing, palpitations, chest pain or pressure, syncope, near syncope, stroke or stroke-like symptoms. REVIEW OF SYSTEMS: Twelve-point review of system is conducted and is negative except that listed above in the HPI. PAST MEDICAL HISTORY: 1. Nonischemic cardiomyopathy, ejection fraction 35-40% in 2003. 2. Coronary artery disease, mild 30% LAD lesion diagnosed by left heart catheterization in 2003. 3. Hypertension. 4. History of gastric ulcer. PAST SURGICAL HISTORY: None. ALLERGIES: No known drug allergies. HOME MEDICATIONS: Include: 1. Carvedilol 3.125 mg p.o. b.i.d. 2. Aspirin 81 mg daily. 3. Lasix 20 mg daily. 4. Finasteride 5 mg daily. 5. Losartan 50 mg daily. 6. Lipitor 10 mg at bedtime. SOCIAL HISTORY: Negative for tobacco. Positive for occasional, but not excessive alcohol consumption. Negative for illicit drug use. FAMILY HISTORY: Positive for coronary artery disease. Negative for sudden cardiac to the best of his recollection. PHYSICAL EXAMINATION: VITAL SIGNS: Most recent vital signs: Temperature 97.6, pulse is 64, respirations 18, oxygen is 96% on 1-liter nasal cannula, blood pressure 114/69. GENERAL: This is a well-developed, well-groomed gentleman, in no apparent distress. He is elderly and appears his stated age. HEENT: Normocephalic. Atraumatic. NECK: Supple without jugular venous distention. His thyroid is nonpalpable. His oral mucosa is moist and pink with adequate dentition. PULMONARY: Mild bibasilar crackles. Respirations are even and unlabored with good bilateral excursion. CARDIOVASCULAR: Heart rate is regularly regular with a normal S1, S2. EXTREMITIES: Warm and dry to touch without clubbing or cyanosis. Positive for trace edema to bilateral lower extremities. GASTROINTESTINAL: Abdomen is soft, nontender without palpable masses. Hepatojugular reflux is negative. NEUROLOGIC: Nonfocal and grossly intact. LABORATORY DATA: Hematology was unremarkable. Chemistry: Potassium 3.6, creatinine 1.1. Serial troponins were performed on admission and were elevated , peaking at 2.0, now attributed to demand ischemia. Telemetry and EKGs all were personally reviewed, revealing sinus rhythm with an underlying left bundle branch block. Echocardiogram performed on 02/03, ejection fraction 10-15%, mildly dilated left atrium, left ventricular size is severely increased. IMPRESSION: 1. Acute on chronic congestive heart failure, improving with diuresis, declining functional status and declining ejection fraction. 2. Nonischemic cardiomyopathy, minimal coronary artery disease in 2013. 3. Worsening left ventricular ejection fraction was 35-40% in 2011 and most recently 10-15% by echocardiogram this hospitalization. 4. Newly found left bundle branch block. 5. Increased troponin attributed to demand ischemia. PLAN: The patient would likely benefit from biventricular pacing and defibrillator implantation. I discussed this at length with the patient including risks, benefits, and alternatives. He has been medically managed his cardiomyopathy for some time, in spite of that, we find that his ejection fraction is continuing to decline along with his functional status with his heart failure. We will also see a newly found left bundle-branch block, progressively worseining CHF like symptoms and worseninig, now severely increased left ventricular size by echocardiogram, making a cardiac resynchronization therapy and biventricular pacing imperative for him. ICD therapy reasobale, hence the longstandoing non-ischemic CMP despite adequaite medical regimen. Discussed with dr Grewal and he flet, that the troponin increase was due to demand ischemia, not true myocardial ischemia event. Risks of biventricular ICD implantation include pain, swelling, bruising, infection at the implant site in addition to a pneumothorax, hemothorax, new for chest tube placement or damage to the heart. The patient voices understanding and is agreeable to move forward with implant tomorrow, pending lab availability. All questions have been answered, family at bedside for this discussion. Thank you for allowing us to participate in the care of this patient. Kamilla Abraham NP, dictated for Dr. Schmidt. ADELA
[2018-02-08] MEDS ORDERED: Iopamidol 370 76% 50 ML VIAL FS ONE (10:11)
[2018-02-08] MEDS: Aspirin 81 mg Enteric Coated Tablet PO SCH (11:17)
[2018-02-08] MEDS: Spironolactone 25 MG TAB PO SCH (11:17)
[2018-02-08] MEDS: Losartan 25 MG TAB PO SCH ×2 (11:17→20:49)
[2018-02-08] MEDS: Docusate 100 MG CAP PO SCH ×2 (11:17→20:49)
[2018-02-08] MEDS: Atorvastatin Calcium 10 MG TAB PO SCH (11:17)
[2018-02-08] MEDS: Finasteride 5 MG TAB PO SCH (11:17)
[2018-02-08] MEDS: Polyethylene Glycol 3350 17 GM Packet PO SCH (11:17)
[2018-02-08] MEDS: Carvedilol 3.125 MG TAB PO SCH ×2 (11:20→16:39)
[2018-02-08] MEDS: Cephalexin 250 MG CAP PO SCH ×2 (15:34→20:49)
[2018-02-09] MEDS: Aspirin 81 mg Enteric Coated Tablet PO SCH (08:32)
[2018-02-09] MEDS: Atorvastatin Calcium 10 MG TAB PO SCH (08:32)
[2018-02-09] MEDS: Spironolactone 25 MG TAB PO SCH (08:32)
[2018-02-09] MEDS: Carvedilol 3.125 MG TAB PO SCH (08:32)
[2018-02-09] MEDS: Docusate 100 MG CAP PO SCH (08:33)
[2018-02-09] MEDS: Finasteride 5 MG TAB PO SCH (08:33)
[2018-02-09] MEDS: Cephalexin 250 MG CAP PO SCH (08:33)
[2018-02-09] MEDS: Polyethylene Glycol 3350 17 GM Packet PO SCH (08:33)
[2018-02-09] MEDS: Losartan 25 MG TAB PO SCH (08:33)
--- NOTE | 2018-02-09 08:43 | RAD ---
PORTABLE UPRIGBHT FRONTAL CHEST RADIOGRAPH: DATE: 02/09/18. COMPARISON: 02/01/18. HISTORY: Evaluate chest following cardiac device placement. FINDINGS: There is a 3-lead transvenous AICD inserted via left subclavian approach with leads overlying region of right atrium, right ventricle, and coronary sinus. Cardiac silhouette appears enlarged. No focal consolidation or alveolar edema. The pulmonary vascular congestion and interstitial pulmonary edema noted on the prior examination has resolved. No pneumothorax. IMPRESSION: Transvenous pacing device in place with no evidence for pneumothorax. POS: STEPHANIE
[2018-02-09 11:44] VITALS: TEMP 97.5
[2018-02-09 12:27] VITALS: BMI 21.6
--- NOTE | 2018-02-09 13:14 | PDOC.PN ---
- Subjective Encounter Start Date: 02/07/18 Encounter Start Time: 15:00 pt leaving for labor custodian now, no firther rhythm issues. No F/C, no n/V/D/C, no CP or sOB all systems reviewed and neg x asa clari - Objective Resuscitation Status: Resuscitation Status FULL:Full Resuscitation MAR Reviewed: Yes Vital Signs & Weight: Vital Signs (12 hours) Temp Pulse Resp BP Pulse Ox 02/09/18 11:34 97.5 F L 73 16 108/60 95 02/09/18 08:21 97.8 F 92 16 120/68 96 02/09/18 04:00 98.4 F 66 15 115/60 95 Weight Admit Weight 155 lb 3 oz Weight 146 lb 3.2 oz I&O: 02/08/18 02/09/18 02/10/18 06:59 06:59 06:59 Intake Total 1375 260 Output Total 325 400 Balance 1050 -140 Result Diagrams: 02/08/18 05:08 02/08/18 05:08 Phys Exam - Physical Examination Constitutional: NAD HEENT: PERRLA, moist MMs, sclera anicteric, oral pharynx no lesions Neck: no nodes, no JVD, supple, full ROM Respiratory: no wheezing, no rales, no rhonchi, clear to auscultation bilateral Cardiovascular: RRR, no significant murmur Gastrointestinal: soft, non-tender, no distention, positive bowel sounds Musculoskeletal: edema present Neurological: non-focal, normal sensation, moves all 4 limbs Lymphatic: no nodes Psychiatric: normal affect Skin: no rash, normal turgor, cap refill <2 seconds Dx/Plan (1) Acute on chronic systolic (congestive) heart failure Code(s): I50.23 - ACUTE ON CHRONIC SYSTOLIC (CONGESTIVE) HEART FAILURE Status : Acute Comment: ef of 15%, ACC stage B (2) NSTEMI (non-ST elevated myocardial infarction) Code(s): I21.4 - NON-ST ELEVATION (NSTEMI) MYOCARDIAL INFARCTION Status: Resolved Comment: present on admit, resolved (3) Hypertension Code(s): I10 - ESSENTIAL (PRIMARY) HYPERTENSION Status: Chronic Qualifiers: Hypertension type: essential hypertension Qualified Code(s): I10 - Essential (primary) hypertension (4) Acute respiratory failure with hypoxia Code(s): J96.01 - ACUTE RESPIRATORY FAILURE WITH HYPOXIA Status: Resolved Comment: sec to chf exac - Plan cont current plan of care, out of bed/ambulate * . BiV AICD today, plan for discharge tomorrow
--- NOTE | 2018-02-09 13:17 | PDOC.PN ---
- Subjective Encounter Start Date: 02/08/18 Encounter Start Time: 11:00 pt bumped due to STEMI yesterday. BiV today. nO overnight events, no new complaints no f/c , no N/V/D/C, no CP or SOB all systems reviewed and neg x as above - Objective Resuscitation Status: Resuscitation Status FULL:Full Resuscitation MAR Reviewed: Yes Vital Signs & Weight: Vital Signs (12 hours) Temp Pulse Resp BP Pulse Ox 02/09/18 11:34 97.5 F L 73 16 108/60 95 02/09/18 08:21 97.8 F 92 16 120/68 96 02/09/18 04:00 98.4 F 66 15 115/60 95 Weight Admit Weight 155 lb 3 oz Weight 146 lb 3.2 oz I&O: 02/08/18 02/09/18 02/10/18 06:59 06:59 06:59 Intake Total 1375 260 Output Total 325 400 Balance 1050 -140 Result Diagrams: 02/08/18 05:08 02/08/18 05:08 Phys Exam - Physical Examination Constitutional: NAD HEENT: PERRLA, moist MMs, sclera anicteric, oral pharynx no lesions Neck: no nodes, no JVD, full ROM Respiratory: no wheezing, no rhonchi, clear to auscultation bilateral Cardiovascular: RRR, no rub Gastrointestinal: soft, non-tender, no distention, positive bowel sounds Musculoskeletal: edema present Neurological: non-focal, normal sensation, moves all 4 limbs Lymphatic: no nodes Psychiatric: normal affect Skin: no rash, normal turgor, cap refill <2 seconds Dx/Plan (1) Acute on chronic systolic (congestive) heart failure Code(s): I50.23 - ACUTE ON CHRONIC SYSTOLIC (CONGESTIVE) HEART FAILURE Status : Acute Comment: ef of 15%, ACC stage B, BiV aICD today, plan for home tomorrow (2) NSTEMI (non-ST elevated myocardial infarction) Code(s): I21.4 - NON-ST ELEVATION (NSTEMI) MYOCARDIAL INFARCTION Status: Resolved Comment: present on admit, resolved (3) Hypertension Code(s): I10 - ESSENTIAL (PRIMARY) HYPERTENSION Status: Chronic Qualifiers: Hypertension type: essential hypertension Qualified Code(s): I10 - Essential (primary) hypertension (4) Acute respiratory failure with hypoxia Code(s): J96.01 - ACUTE RESPIRATORY FAILURE WITH HYPOXIA Status: Resolved Comment: sec to chf exac - Plan * .
--- NOTE | 2018-02-09 13:53 | DIS ---
DATE OF ADMISSION: 02/01/2018 DATE OF DISCHARGE: 02/09/2018 PRIMARY CARE PHYSICIAN: Kimo Duffy M.D. PRIMARY EDUCATION MANAGER: Jesus Lopez M.D. PRIMARY ELECTROPHYSIOLOGY DOCTOR: Tin Schmidt M.D. DISCHARGE DIAGNOSES: 1. Acute on chronic systolic congestive heart failure. 2. Severe ischemic cardiomyopathy. 3. Non-ST elevation myocardial infarction, present on admission. 4. Acute hypoxemic respiratory failure, resolved. 5. Essential hypertension. CONSULTATIONS: 1. Cardiology, Dr. Jesus Lopez. 2. Electrophysiology, Dr. Tin Schmidt. PROCEDURES: 1. Echocardiogram, 02/03/2018 showed EF 10%-15% severely increased LV size, moderate MR, moderate AI and mild TR. 2. Biventricular AICD implantation, 02/08/[address] Schmidt. HISTORY AND PHYSICAL: Mr. Mendoza is an 82-year-old gentleman who presented to [facility] on 02/01/2018 for increasing shortness of breath. He had symptoms for several hours that were not getting better. He decided to present to the emergency department, found to be hypoxe andrew. He was requiring BiPAP to maintain a pCO2 of 116, pH is 7.23 with pCO2 of 51. He was started o n IV Lasix. We called for admission. HOSPITAL COURSE: The patient was seen and examined by Dr. Arevalo and placed on inpatient status. He was continued on BiPAP, IV Lasix was continued. Cardiology consulted. Overnight 02/02/2018-02/03/2018, the patient improved. He was seen by Pulmonary Critical Care the fo win morning due to his location in the [facility]. He was weaned off BiPAP and was doing well. The pa tient was taken to OR by Dr. Mcbride. The patient was seen by Cardiology, recommended echocardiogram which was done with the above findings, and aggressive diuresis. The patient was watched over the we ekend 02/04/2018 through 02/06/2018, and on 02/06/2018 Electrophysiology was consulted for need for p ossible biventricular pacemaker. Seen by Dr. Schmidt on 02/07/2018, and was arranged initially to go to the experimental machining lab manager on 02/08/2018, who was brought in secondary to ST elevation [place], so the patient was take n on 02/08/2018 for AICD biventricular implantation. There were no noted complications, the patient did well and today was stable for discharge with outpatient followup. PHYSICAL EXAMINATION: The patient was seen and examined on the day of discharge. Discharge plan and disposition discussed with the patient face to face at the bedside. DISCHARGE MEDICATIONS: New medications: Keflex 500 mg p.o. t.i.d. for 10 days. Home medication to continue. 1. Coreg 3.125 mg p.o. b.i.d. 2. Aspirin 81 mg daily. 3. Atorvastatin 10 mg p.o. at bedtime. 4. Proscar 5 mg daily. 5. Losartan 50 mg daily. 6. Lasix 20 mg daily. 7. Spironolactone 25 mg p.o. q.a.m. New prescription sent. FOLLOWUP APPOINTMENTS: 1. Primary care physician within a week. 2. Dr. Lopez in 2-[address] Schmidt in 1-2 weeks. DISCHARGE ACTIVITY: Per cardiopulmonary limits. DISCHARGE DIET: Heart healthy diet recommended. DISCHARGE CONDITION: Stable. DISPOSITION: Discharged to home via private vehicle.
[2018-02-09 15:12] VITALS: BP 114/74
== END 2018-02-09 14:44 | disposition home or self-care (01) | DRG 280 ==
LOC: ERS 23:27 → IMCU/EMU 23:53 → 2NO 02-03 10:49
PROVIDERS: ADMIT Hospitalist; ATTEND Hospitalist
PROC: 5A09357 Assistance with Respiratory Ventilation, Less than 24 Consecutive Hours, Continuous Positive Airway Pressure (ICD-10-PCS; principal; 2018-02-01)
DX: I11.0 Hypertensive heart disease with heart failure (principal); I21.4 Non-ST elevation (NSTEMI) myocardial infarction; J96.01 Acute respiratory failure with hypoxia; I50.23 Acute on chronic systolic (congestive) heart failure; I42.8 Other cardiomyopathies; N40.0 Benign prostatic hyperplasia without lower urinary tract symptoms; E78.5 Hyperlipidemia, unspecified; I25.10 Atherosclerotic heart disease of native coronary artery without angina pectoris; E03.9 Hypothyroidism, unspecified; K21.9 Gastro-esophageal reflux disease without esophagitis; Z79.899 Other long term (current) drug therapy; Z79.82 Long term (current) use of aspirin; I44.7 Left bundle-branch block, unspecified
CPT/HCPCS: 33225; 33249; 36005; 36415; 71045; 75820; 80048; 82805; 83735; 84484; 85025; 90471; 90670; 93005; 93306; 93798; 94660; 99152; 99153; A4216; C1777; C1882; C1898; C1900; G0009; J1650; J1940; J2001; J2250; J3010; J3490; J7050

== ENCOUNTER 2021-02-23 13:12 | Emergency (ER) | payer MEDICARE, BC ==
[2021-02-23 13:51] LABS: #Eosinphils 0.1 thou/uL (0.0-0.7); #Lymphocytes 0.9 thou/uL (1.20-3.40); #Monocytes 0.4 thou/uL (0.11-0.59); #Neutrophils 5.9 thou/uL (1.40-6.50); %Basophils 0.1 % (0.0-1.0); %Eosinophils 1.4 % (0.0-10.0); %Lymphocytes 12.3 % (21.0-51.0); %Monocytes 5.3 % (0.0-10.0); %Neutrophils 80.9 % (42.0-75.0); Hemoglobin 14.9 g/dL (14.0-18.0); Mean Corpuscular HGB CONC 34.3 g/dL (32.0-36.0); Mean Corpuscular Hemoglobin 33.3 pg (27.0-31.0); Mean Corpuscular Volume 97.1 fL (78.0-98.0); Mean Platelet Volume 8.3 fL (7.4-10.4); Platelet Count 144 thou/uL (130-400); RBC Distribution Width 11.9 % (11.5-14.5); Red Blood Cell (RBC) Count 4.47 mill/uL (4.70-6.10); White Blood Cell (WBC) Count 7.3 thou/uL (4.8-10.8)
[2021-02-23 14:02] LABS: Prothrombin Time 13.3 sec (12.0-14.7)
[2021-02-23 14:03] LABS: PTT 28.6 sec (22.9-36.1)
[2021-02-23 14:32] LABS: ALT (SGPT) 16 U/L (8-55); AST (SGOT) 17 U/L (5-34); Alkaline Phosphatase 47 U/L (40-110); Anion Gap 10 mmol/L (10-20); BUN (Urea Nitrogen) 26 mg/dL (8.4-25.7); Bilirubin, Total 1.2 mg/dL (0.2-1.2); Calc. Creatinine Clearance 0 mL/min (70-130); Calcium 9.2 mg/dL (7.8-10.44); Carbon Dioxide 32 mmol/L (23-31); Chloride 103 mmol/L (98-107); Globulin 2.6 g/dL (2.4-3.5); Glucose 130 mg/dL (83-110); Protein, Total 6.6 g/dL (5.8-8.1); Sodium 141 mmol/L (136-145)
== END 2021-02-23 19:28 | disposition home or self-care (01) ==
LOC: ERS 13:12
DX: K62.5 Hemorrhage of anus and rectum (principal); I10 Essential (primary) hypertension; E87.6 Hypokalemia; I25.10 Atherosclerotic heart disease of native coronary artery without angina pectoris; K21.9 Gastro-esophageal reflux disease without esophagitis; E78.00 Pure hypercholesterolemia, unspecified
CPT/HCPCS: 36415; 80053; 82274; 85025; 85610; 85730; 86850; 86900; 86901; 93005